=== PATIENT | female | born 1995 | race African-American/Black ===

== ENCOUNTER 2020-09-16 19:17 | Emergency (ER) | payer SELFPAY ==
[~2020-09-16] VITALS: Ht 162.6 cm; Wt 78.8 kg
[2020-09-16] MEDS ORDERED: ACETAMINOPHEN 325MG TABLET PO STA (20:25)
[2020-09-16 20:42] LABS: CLARITY URINE TURBID (CLEAR); COLOR URINE YELLOW (YELLOW); KETONES URINE NEGATIVE (NEGATIVE); LEUKOCYTE ESTERASE URINE NEGATIVE (NEGATIVE); NITRITE URINE NEGATIVE (NEGATIVE); OCCULT BLOOD URINE NEGATIVE (NEGATIVE); PROTEIN URINE NEGATIVE (NEGATIVE); SPECIFIC GRAVITY URINE 1.013 (1.005-1.030)
[2020-09-16 21:32] LABS: BASOPHILS % 0.5 % (0.0-2.0); EOSINOPHILS % 0.9 % (0.0-5.0); HEMATOCRIT. 38.3 % (36.0-48.0); HEMOGLOBIN. 12.7 g/dL (12.0-16.0); LYMPHOCYTES % 34.3 % (20.0-50.0); MEAN CORPUSCULAR HEMOGLOBIN 26.1 pg (28.0-32.0); MEAN CORPUSCULAR VOLUME 78.3 fL (81.0-99.0); MEAN PLATELET VOLUME 9.6 fl (7.4-10.4); MONOCYTES % 12.1 % (2.0-8.0); NEUTROPHILS % 52.2 % (40.0-76.0); PLATELET 191 x1000/uL (130-400); RED BLOOD CELL COUNT 4.89 mill/uL (4.2-5.4); RED CELL DISTRIBUTION WIDTH 13.3 % (11.6-14.6)
[2020-09-16 21:39] LABS: CHLORIDE 105 mEq/L (98-107)
[2020-09-16 22:23] VITALS: BP 141/91
== END 2020-09-16 22:25 | disposition home or self-care (01) ==
LOC: ER 19:17
DX: R55 Syncope and collapse (principal); G43.909 Migraine, unspecified, not intractable, without status migrainosus; R53.1 Weakness; R07.9 Chest pain, unspecified
CPT/HCPCS: 36415; 71045; 80053; 81003; 81025; 85025; 93005; 99285